=== PATIENT | male | born 1980 | race Caucasian/White ===

== ENCOUNTER 2021-03-07 18:18 | Emergency (ER) | payer SELFPAY ==
[2021-03-07] MEDS ORDERED: traMADol 50 MG Tab PO ONE (19:33)
[2021-03-07] MEDS ORDERED: Cephalexin 500 MG Cap PO ONE (19:33)
--- NOTE | 2021-03-07 19:43 | EDM.PDOC ---
ED HPI GENERAL MEDICAL PROBLEM - General Chief Complaint: Skin Complaint Stated Complaint: POSSIBLE STOMACH INFECTION Time Seen by Provider: 03/07/21 19:32 Source of Information: Reports: Patient History Limitations: Reports: No Limitations - History of Present Illness INITIAL COMMENTS - FREE TEXT/NARRATIVE: HISTORY AND PHYSICAL: History of present illness: Patient is a 40-year-old male who presents to the emergency room with complaints of an abscess to the left lower abdomen. He states he noticed this abscess about 4 5 days ago, he was seen in [facility] on . They did attempt an I&D at that time without any drainage. Patient was placed on Bactrim DS. He picked up his medication yesterday afternoon and has now had 2 doses. He states the abscess itself has become smaller but feels the surrounding erythema has extended. Patient denies any fever, chills, headache, change in vision, syncope or near syncope. Denies any chest pain, back pain, shortness of breath or cough. Denies any abdominal pain, nausea, vomiting, diarrhea, constipation or dysuria. Has not noted any blood in urine or stool. Denies any testicular pain, redness or swelling. Patient has been eating and drinking appropriately. Review of systems: As per history of present illness and below otherwise all systems reviewed and negative. Past medical history: As per history of present illness and as reviewed below otherwise noncontributory. Surgical history: As per history of present illness and as reviewed below otherwise noncontributory. Social history: See social history for further information Family history: As per history of present illness and as reviewed below otherwise noncontributory. Physical exam: General: Well developed and well nourished 40-year-old male. Alert and orientated x 3. Nontoxic in appearance and in no acute distress. Vital signs are stable and have been reviewed by me. Nursing notes were reviewed. HEENT: Atraumatic, normocephalic, pupils equal and reactive bilaterally, negative for conjunctival pallor or scleral icterus, mucous membranes moist, trachea midline. No drooling or trismus noted. No meningeal signs. No hot potato voice noted. Lungs: Clear to auscultation bilaterally. No wheezes, rales, or rhonchi. Chest nontender. Normal work of breathing, no accessory muscles used. Heart: S1S2, regular rate and rhythm without overt murmur, gallops, or rubs. No JVD. No peripheral edema Abdomen: Soft, nondistended, nontender. Normoactive bowel sounds. Negative for masses or costovertebral tenderness. Skin: Quarter size area of firm indurated skin with surround erythema to the left lower quadrant. Area is tender to touch. Remaining skin is intact, warm, dry. No lesions or rashes noted. Hematologic: No petechiae or purpra. Mucosa appropriate color and normal nail bed color and refill. Extremities: Atraumatic, moves all extremities per self without difficulty or deficits. Neurovascular unremarkable. Neuro: Awake, alert, oriented. Cranial nerves II through XII unremarkable. Cerebellum unremarkable. Motor and sensory unremarkable throughout. Exam nonfocal. Psychiatric: Mood and affect are appropriate. Normal thought process. Answering questions appropriately. Notes: *This patient was seen and evaluated during the 2019 SARS-CoV-2 novel coronavirus pandemic period. Community viral transmission is ongoing at time of this encounter and the emergency department is operating under pandemic response procedures. Patient is requesting that I drain the site. There is mild fluctuation noted. 1% lidocaine was used to anesthetize the area. Betadine was used to sterilize the site. Usual and customary procedures were followed for proposed I&D. Was unable to get any drainage from the site. Did attempt to break up any inoculations. Dr Hong used the ultrasound machine, area appears cobblestone consistent with cellulitis. No abscess identified. Wound care provided. The cellulitis was outlined with a surgical marker. We did discuss admission for IV antibiotics versus adding Keflex to his Bactrim DS. He has only had 2 tabs of the Bactrim DS and states that the size of the "abscess" has improved. He would prefer to add the Keflex at this time and monitor the site very closely. Strict return precautions were reviewed and discussed. Reassessment at the time of disposition demonstrates that the patient is in no acute distress. The patient is stable for discharge, counseling was provided and we discussed in great detail signs and symptoms that would prompt them to return to the Emergency Department. Medication, follow up and supportive care measures were reviewed and discussed. Voices understanding and is agreeable to plan of care. Denies any further questions or concerns at this time. Diagnostics: None Therapeutics: Lidocaine, I&D Prescription: Keflex Impression: cellulitis Plan: 1. You were evaluated today on an emergent basis. Keep the skin clean and dry. Continue to monitor for signs of improvement. Please take both the Bactrim and Keflex as directed. If the redness should worsen or your symptoms do not improve you do need to return to the emergency room as you may need admission for IV antibiotics. 2. You can alternate Tylenol and ibuprofen as needed for pain and fever management. 3. We encourage you to follow up with your primary care provider and/or recommended specialist in the next few days for re-evaluation and further care/management. Definitive disposition and diagnosis as appropriate pending reevaluation and review of above. Left Groin Pain Score (Numeric/FACES): 10 - Related Data Allergies Allergy/AdvReac Type Severity Reaction Status Date / Time No Known Allergies Allergy Verified 03/07/21 19:35 Home Meds: Home Meds Sulfamethoxazole/Trimethoprim [Bactrim Ds Tablet] 1 dose PO ASDIRECTED 03/07/21 [History] Past Medical History Other Musculoskeletal History: tendonitis ED ROS GENERAL - Review of Systems Review Of Systems: Comprehensive ROS is negative, except as noted in HPI. ED EXAM, SKIN/RASH Exam: See Below (See dictation) Course - Vital Signs Last Recorded V/S: Last Vital Signs Temp 98.7 F 03/07/21 18:46 Pulse 91 03/07/21 18:46 Resp 18 03/07/21 18:46 BP 157/91 H 03/07/21 18:46 Pulse Ox 98 03/07/21 18:46 - Orders/Labs/Meds Meds: Medications Discontinued Medications Generic Name Dose Route Start Last Admin Trade Name Quincyq PRN Reason Stop Dose Admin Cephalexin 500 mg 03/07/21 19:33 Cephalexin 500 Mg Cap PO 03/07/21 19:34 ONETIME ONE Tramadol HCl 50 mg 03/07/21 19:33 Tramadol 50 Mg Tab PO 03/07/21 19:34 ONETIME ONE Departure - Departure Time of Disposition: 19:43 Disposition: Home, Self-Care 01 Clinical Impression: Cellulitis Qualifiers: Site of cellulitis: trunk Site of cellulitis of trunk: abdominal wall Qualified Code(s): L03.311 - Cellulitis of abdominal wall - Discharge Information Instructions: Cellulitis, Adult, [id number] Forms: ED Department Discharge Additional Instructions: The following information is given to patients seen in the emergency department who are being discharged to home. This information is to outline your options for follow-up care. We provide all patients seen in our emergency department with a follow-up referral. The need for follow-up, as well as the timing and circumstances, are variable depending upon the specifics of your emergency department visit. If you don't have a primary care physician on staff, we will provide you with a referral. We always advise you to contact your personal physician following an emergency department visit to inform them of the circumstance of the visit and for follow-up with them and/or the need for any referrals to a consulting specialist. The emergency department will also refer you to a specialist when appropriate. This referral assures that you have the opportunity for follow-up care with a specialist. All of these measure are taken in an effort to provide you with optimal care, which includes your follow-up. Under all circumstances we always encourage you to contact your private physician who remains a resource for coordinating your care. When calling for follow-up care, please make the office aware that this follow-up is from your recent emergency room visit. If for any reason you are refused follow-up, please contact the [facility] Emergency Department at and asked to speak to the emergency department charge nurse. [facility] [address] [place] [id number] [place] [address] Thank you for choosing the [facility] emergency department in [place] for your medical needs today. It was a pleasure caring for you. Today you were seen in the emergency department for abdominal cellulitis. 1. You were evaluated today on an emergent basis. Keep the skin clean and dry. Continue to monitor for signs of improvement. Please take both the Bactrim and Keflex as directed. If the redness should worsen or your symptoms do not improve you do need to return to the emergency room as you may need admission for IV antibiotics. 2. You can alternate Tylenol and ibuprofen as needed for pain and fever management. 3. We encourage you to follow up with your primary care provider and/or recommended specialist in the next few days for re-evaluation and further care/management. Sepsis Event Note (ED) - Focused Exam Vital Signs: Vital Signs Temp Pulse Resp BP Pulse Ox 03/07/21 18:46 98.7 F 91 18 157/91 H 98
[2021-03-07 19:58] VITALS: BP 148/83; PULSE 89
== END 2021-03-07 20:00 | disposition home or self-care (01) ==
LOC: MW.ED 18:18
DX: L03.311 Cellulitis of abdominal wall (principal)
CPT/HCPCS: 99283; A9270; 10060; 99282

== ENCOUNTER 2022-02-16 11:58 | Emergency (ER) | payer SELFPAY ==
[2022-02-16] MEDS ORDERED: Fluconazole 100 MG Tab PO ONE (12:37)
[2022-02-16] MEDS ORDERED: Sulfamethoxazole/Trimethoprim 800-160 MG Tab PO ONE (12:37)
[2022-02-16 12:44] VITALS: BP 150/91; PULSE 98
== END 2022-02-16 12:48 | disposition home or self-care (01) ==
LOC: MW.ED 11:58
DX: L03.90 Cellulitis, unspecified (principal); B35.3 Tinea pedis; B37.2 Candidiasis of skin and nail; L30.8 Other specified dermatitis
CPT/HCPCS: 99283; A9270

== ENCOUNTER 2022-03-10 07:23 | Emergency (ER) | payer SELFPAY ==
[2022-03-10] MEDS ORDERED: Sodium Chloride 0.9% 1,000 ML IV ONE (07:47)
[2022-03-10] MEDS ORDERED: Ketorolac 30 MG/ML SDV IVPUSH ONE (07:47)
[2022-03-10 08:31] LABS: CARBON DIOXIDE,CO2 28.9 mmol/L (21.0-32.0)
[2022-03-10 09:34] VITALS: BP 127/76; PULSE 77
== END 2022-03-10 09:32 | disposition home or self-care (01) ==
LOC: MW.ED 07:23
DX: N20.0 Calculus of kidney (principal)
CPT/HCPCS: 36415; 74176; 74176-26; 80053; 81001; 83690; 85025; 96374; 99284-25; J1885; J7030

== ENCOUNTER 2023-03-19 04:02 | Emergency (ER) | payer SELFPAY ==
[2023-03-19 04:13] VITALS: BP 127/88; PULSE 91
[2023-03-19] MEDS ORDERED: Ketorolac 60 MG/2 ML SDV IM ONE (04:13)
== END 2023-03-19 04:25 | disposition home or self-care (01) ==
LOC: MW.ED 04:02
DX: M77.9 Enthesopathy, unspecified (principal)
CPT/HCPCS: 96372; 99283; J1885; 99282